=== PATIENT | female | born 2000 | race African-American/Black ===

== ENCOUNTER 2025-06-09 15:20 | Emergency (ER) | payer OTHER, SELFPAY ==
[2025-06-09 15:27] VITALS: BP 119/72; PULSE 69; TEMP 36.9; O2SAT 100; BMI 31.2
[2025-06-09 15:43] LABS: Glucose Urine UA NEGATIVE (NEGATIVE)
[2025-06-09 15:47] LABS: HCG Qualitative Urine* POSITIVE (NEGATIVE)
[2025-06-09 15:56] LABS: Cast Seen? NONE SEEN #/LPF (NONE SEEN); Crystals Seen? None Seen #/HPF (None Seen); Urine Culture Indicated NO
--- NOTE | 2025-06-09 16:09 | ED.GENADUL1 ---
HPI HPI - General Adult General Chief complaint: Nausea/Vomiting/Diarrhea Stated complaint: NAUSEA Time Seen by Provider: 06/09/25 15:33 Source: patient Mode of arrival: walk-in Limitations: no limitations History of Present Illness HPI narrative: The patient presents to the ER to be evaluated for nausea for the last 3 days and she is concerned that she could be she denies any abdominal pain or any vaginal bleeding and her last menstruation was last month exactly and it was normal The patient had not been before Related Data Previous Rx's ?Medication ?Instructions ?Recorded amoxicillin 875 mg-potassium 1 tab PO Q12H #10 tabs 06/09/25 clavulanate 125 mg tablet ondansetron 4 mg disintegrating 4 mg PO Q8H PRN nausea and 06/09/25 tablet vomiting 5 days #20 tabs Allergies Allergy/AdvReac Type Severity Reaction Status Date / Time No Known Drug Allergies Allergy Verified 06/09/25 15:27 Review of Systems ROS Status of ROS 10 or more systems reviewed and unremarkable except as noted in history and below PFSH PFSH Social History Little interest or pleasure in doing things: not at all Feeling down, depressed, or hopeless: not at all Exam Narrative Exam Narrative: Nurses notes and vital signs reviewed and patient is not hypoxic. General: Well-appearing and in no apparent distress. Skin: Warm, dry, no pallor noted. No rash. Head: Normocephalic, atraumatic. Cardiovascular: Regular Rate and Rhythm without murmur, gallop or rub. Respiratory: No accessory muscle use or respiratory distress. Lungs are clear to auscultation, no wheezing, rales or rhonchi Back: No midline thoracic or lumbar vertebral tenderness. No CVA tenderness Musculoskeletal: normal ROM, no calf or popliteal tenderness, no lower extremity edema/swelling GI: Abdomen is soft, non-distended. Normal bowel sounds. No masses appreciated. No tenderness to palpation. No rebound, guarding, or rigidity noted. Neurological: A&O x4. No cranial nerve dysfunction observed. No truncal ataxia. Moves all extremities. Sensation intact. Psychiatric: Cooperative and interactive. Normal mood and affect. Constitutional Vital Signs, click to edit/add: Last Vital Signs Temp 98.4 F 06/09/25 15:27 Pulse 69 06/09/25 15:27 Resp 18 06/09/25 15:27 BP 119/72 11/17/25 15:27 Pulse Ox 100 06/09/25 15:27 O2 Del Method Room Air 06/09/25 15:27 Course Vital Signs Vital signs: Vital Signs Temperature 98.4 F 06/09/25 15:27 Pulse Rate 69 06/09/25 15:27 Respiratory Rate 18 06/09/25 15:27 Blood Pressure 119/72 06/09/25 15:27 Pulse Oximetry 100 06/09/25 15:27 Oxygen Delivery Method Room Air 06/09/25 15:27 Temperature 98.4 F 06/09/25 15:27 Pulse Rate 69 06/09/25 15:27 Respiratory Rate 18 06/09/25 15:27 Blood Pressure 119/72 06/09/25 15:27 Pulse Oximetry 100 06/09/25 15:27 Oxygen Delivery Method Room Air 06/09/25 15:27 Medical Decision Making MDM Narrative Medical decision making narrative: I the patient test is positive and her urine shows some bacteria She was provided Zofran for supportive care discharged home with Zofran as well as referred to OB as outpatient Patient started Augmentin because of her history of being And she was instructed about the proper monitoring at home in case of any symptoms she is to come back to the ER in case of any continuous nausea and vomiting she will is also to come back to the ER The patient to follow-up with the primary care within 2 to 3 days and to come back to the ER in case of any worsening of the current symptoms or any new symptoms or concerns Lab Data Labs: Lab Results 06/09/25 Range/Units 15:24 Urine Color Dk yellow (YELLOW) Urine Clarity Clear (CLEAR) Urine pH 7.0 (5.0-9.0) Ur Specific [place] 1.020 (1.005-1.025) Urine Protein Trace (NEG/TRACE) mg/dL Urine Glucose (UA) Negative (NEGATIVE) mg/dL Urine Ketones 40 A (NEGATIVE) mg/dL Urine Occult Blood Trace-i (NEGATIVE) Urine Nitrite Negative (NEGATIVE) Urine Bilirubin Small A (NEGATIVE) Urine Urobilinogen 4.0 A (0.2-1.0) EU/dL Ur Leukocyte Esterase Negative (NEGATIVE) Urine RBC 2-5 A (0-2) #/HPF Urine WBC 0-2 A (NONE SEEN) #/HPF Ur Squamous Epith Cells Few A (NONE/RARE) #/LPF Urine Crystals None seen (None Seen) #/HPF Urine Bacteria Trace A (NONE SEEN) #/HPF Urine Casts None seen (NONE SEEN) #/LPF Urine Mucus Small A (NONE SEEN) Ur Culture Indicated? No Urine HCG, Qual Positive A (NEGATIVE) Discharge Plan Discharge Chief Complaint: Nausea/Vomiting/Diarrhea Clinical Impression: , Asymptomatic bacteriuria during Patient Disposition: Home, Self-Care Time of Disposition Decision: 16:10 Condition: Good Prescriptions / Home Meds: New ondansetron 4 mg tablet,disintegrating 4 mg PO Q8H PRN (Reason: nausea and vomiting) 5 Days Qty: 20 0RF amoxicillin-pot clavulanate 875-125 mg tablet 1 tab PO Q12H Qty: 10 0RF Print Language: Wolof Instructions: (ED), Urinary Tract Infection in (ED) Referrals: Cullen Yusuf DO [Physician, [facility] [employer] [employer]END[facility]] - 1 week
[2025-06-09] MEDS: ONDANSETRON 4 MG RAPDIS TABLET SL (16:20)
== END 2025-06-09 16:22 | disposition home or self-care (01) ==
LOC: ER 16:33
PROVIDERS: Emergency Provider Emergency Medicine
DX: O99.891 Other specified diseases and conditions complicating pregnancy (principal); R82.71 Bacteriuria; Z3A.01 Less than 8 weeks gestation of pregnancy
CPT/HCPCS: 81001; 84703; 99285; Q0162